=== PATIENT | male | born 1955 | race Caucasian/White ===

== ENCOUNTER 2017-07-12 14:09 | Emergency (ER) | payer BC ==
[2017-07-12 14:49] VITALS: BP 139/84
[2017-07-12] MEDS ORDERED: Ibuprofen TAB* 400 MG PO ONE (14:58)
--- NOTE | 2017-07-12 15:04 | UC ---
FLU HPI - HPI Summary HPI Summary: day 2 of fevers, chills, body aches, nasal and eye drainage, cough no flu vaccine this year - History of Current Complaint Chief Complaint: UCGeneralIllness Stated Complaint: EYES,FLU LIKE SYMP Time Seen by Provider: 07/12/17 14:52 Hx Obtained From: Patient Onset/Duration: Sudden Onset, Lasting Days - 2, Still Present, Worse Since - this day Severity Currently: Moderate Severity Initially: Moderate Associated Signs & Symptoms: Positive: Fever, Myalgia, Cough, Sore Throat, Headache - Allergy/Home Medications Allergies/Adverse Reactions: Allergies Allergy/AdvReac Type Severity Reaction Status Date / Time No Known Allergies Allergy Verified 07/12/17 14:48 Home Medications: Home Medications cold 1 tab PO ONCE 07/12/17 [History] PMH/Surg Hx/FS Hx/Imm Hx Previously Healthy: Yes - Surgical History Surgical History: Yes Surgery Procedure, Year, and Place: 1997 RIGHT INGUINAL HERNIA REPAIR, [place], [place]. 1989 RIGHT KNEE SURGERY, [place], [place]. 1997 RIGHT KNEE SURGERY, [facility] - Family History Known Family History: Positive: None - Social History Occupation: Employed Full-time Lives: With Family Alcohol Use: Occasionally Substance Use Type: None Smoking Status (MU): Never Smoked Tobacco Review of Systems Constitutional: Fever, Chills Skin: Negative Eyes: Drainage - clear drainage OD, Eye Redness - od ENT: Sore Throat, Nasal Discharge, Sinus Congestion Respiratory: Cough Cardiovascular: Negative Gastrointestinal: Negative Genitourinary: Negative Motor: Negative Neurovascular: Negative Musculoskeletal: Myalgia - back and neck pain Neurological: Negative Psychological: Negative Is Patient Immunocompromised?: No All Other Systems Reviewed And Are Negative: Yes Physical Exam Triage Information Reviewed: Yes Appearance: Well-Appearing, No Pain Distress, Well-Nourished Vital Signs: Initial Vital Signs Temp 101 F 07/12/17 14:44 Pulse 94 07/12/17 14:44 Resp 18 07/12/17 14:44 BP 139/84 07/12/17 14:44 Pulse Ox 98 07/12/17 14:44 Vital Signs Reviewed: Yes Eye Exam: Normal Eyes: Positive: Conjunctiva Clear, Conjunctiva Inflamed ENT Exam: Normal ENT: Positive: Normal ENT inspection, Hearing grossly normal, Pharynx normal, Nasal congestion, TMs normal. Negative: Tonsillar swelling, Tonsillar exudate, Trismus, Muffled voice, Hoarse voice, Dental tenderness, Sinus tenderness, Uvula midline Dental Exam: Normal Neck exam: Normal Neck: Positive: Supple, Nontender, No Lymphadenopathy Respiratory Exam: Normal Respiratory: Positive: Chest non-tender, Lungs clear, Normal breath sounds, No respiratory distress, No accessory muscle use Cardiovascular Exam: Normal Cardiovascular: Positive: RRR, No Murmur, Pulses Normal, Brisk Capillary Refill Musculoskeletal Exam: Normal Musculoskeletal: Positive: Strength Intact, ROM Intact, No Edema Neurological Exam: Normal Neurological: Positive: Alert, Muscle Tone Normal Psychological Exam: Normal Skin Exam: Normal Diagnostics - Laboratory Diagnostic Studies Completed/Ordered: Influenza A/B (-) Flu Course/Dx - Course Course Of Treatment: Polytrim for right eye, otc medication for uri symptoms, follow with pcp - Differential Dx/Diagnosis Provider Diagnoses: URI, Conjuctivitis OD Discharge - Discharge Plan Condition: Stable Disposition: HOME Prescriptions: Polymyx/Trimethoprim OPTH* [Polytrim OPHTH*] 1 drop RIGHT EYE Q3H #1 btl Patient Education Materials: Upper Respiratory Infection (ED), Viral Syndrome ( ED) Referrals: Aleksey Gardiner MD [Primary Care Provider] - If Needed
== END 2017-07-12 15:33 | disposition home or self-care (01) ==
LOC: UCCORT 14:09
DX: J06.9 Acute upper respiratory infection, unspecified (principal); H10.9 Unspecified conjunctivitis; Z72.89 Other problems related to lifestyle
CPT/HCPCS: 87502; 99202; A9270-GY; G0463

== ENCOUNTER → 2019-06-28 09:33 | Day surgery (SDC) | payer BC, OTHER ==
--- NOTE | 2019-06-08 10:17 | HP ---
CC: Dr. Gardiner * PREOPERATIVE HISTORY AND PHYSICAL: DATE OF PREOPERATIVE HISTORY AND PHYSICAL: 06/07/19 This patient is scheduled for same day surgery admission by Dr. Gallardo 06/28/19. ATTENDING SURGERY: Dr. Ghassan Gallardo * (dictated by Lelo Nettles NP) CHIEF COMPLAINT: Incisional umbilical hernia. HISTORY OF PRESENT ILLNESS: The patient is a 63-year-old male recently evaluated by Dr. Gallardo for an incisional umbilical hernia. The patient had a laparoscopic appendectomy in 2016 at [facility]. More recently , he has noticed a bulge in the umbilical region. He denies any pain, he denies any signs or symptoms to suggest incarceration or strangulation. He is physically active. Also, at the time of the laparoscopic appendectomy, the patient was told that he may have a recurrent right inguinal hernia or it may have represented scarring. Dr. Gallardo examined the patient and noted an incisional hernia at the prior trocar site near the umbilicus; no inguinal hernias were palpated. Dr. Gallardo reviewed the findings with the patient and has recommended robotic repair of the incisional umbilical hernia with mesh as a same-day surgery procedure under general anesthesia. Dr. Gallardo described the nature of the surgical procedure, the rationale for the procedure, the relevant risks, benefits, and alternatives and today I reviewed the expected postoperative care and recovery. The patient has had a chance to ask questions and stated that he understands the information and is satisfied with the answers given to his questions. He will sign surgical consent on the day of surgery. PAST MEDICAL HISTORY: Generally healthy, no acute or chronic conditions. PAST SURGICAL HISTORY: Right inguinal hernia repair around 1997; laparoscopic appendectomy September 2016 at [facility]; right knee surgery for ACL repair; open reduction and internal fixation of left fourth finger 2012. MEDICATIONS: None currently. ALLERGIES: No known drug allergies. FAMILY HISTORY: Father due to natural causes. Mother due to lung cancer. 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 REVIEW OF SYSTEMS: Constitutional: No fever, chills, excessive fatigue or weight loss. General: No previous anesthesia complications or bleeding tendencies; he has never received a blood transfusion; he denies any history of deep vein thrombosis or pulmonary embolism. Endocrine: No diabetes or thyroid disease. Respiratory: No dyspnea on exertion or chronic cough. Cardiovascular : No anginal chest pain or palpitations. Gastrointestinal: No nausea, vomiting, diarrhea, GI bleeding, or constipation, or change in bowel habits. Genitourinary: No dysuria; he has seen Dr. Walls in the past for hematuria, none current. Musculoskeletal: Normal strength and tone. Integumentary: No chronic rashes or skin changes. Neurologic: No headache or blurred vision or areas of focal weakness. Psychiatric: No reported anxiety, depression, or insomnia. PHYSICAL EXAMINATION GENERAL SURVEY: The patient is a 63-year-old male, well developed, well nourished, in no acute distress. VITAL SIGNS: Height 72 inches, weight 160 pounds, body mass index 21.7, blood pressure 112/72, pulse 78 and regular, respiratory rate 18, and temperature 97.5 tympanic. SKIN: Warm, dry, and intact. HEENT: Benign. NECK: Supple. No cervical lymphadenopathy. No thyromegaly. BACK: No CVA tenderness. LUNGS: Breath sounds bilaterally clear and equal. HEART: Regular rate and rhythm. No murmurs or rubs appreciated. ABDOMEN: Active bowel sounds, soft, nondistended, nontender throughout. Palpation reveals an incisional hernia at the prior trocar site near the umbilicus. GENITALIA: Examined by Dr. Gallardo, normal external genitalia. No obvious inguinal hernia on either side on palpation. EXTREMITIES: Warm without edema or skin ulceration. RECTAL: Deferred. NEUROLOGIC: Alert and oriented x3; cooperative; steady gait. IMPRESSION: Incisional umbilical hernia. PLAN/RECOMMENDATIONS: Same-day surgery admission to Dr. Gallardo's service on Friday06/28/19 for robotic incisional umbilical hernia repair with mesh. CHRISTOPHER NETTLES NP [id number]/[facility] #: [id number] COLE
[~2019-06-28 09:33] MED LIST: Buffered Lidocaine 1% SYRIN* 1 ML/SYRINGE INTRADERM ONE; Bupivacaine 0.5%* 50 ML MDV VIAL ONE; Dexamethasone IV* 4 MG/ML 1 ML (4 MG) ONE; Famotidine IV* 10 MG/ML 2 ML (20 mg) IV ONE; Famotidine IV* 10 MG/ML 2 ML (20 mg) ONE; Ketorolac INJ* 30 MG/ML 1 ML VIAL ONE; Lidocaine 2% PF * 5 ML VIAL ONE; Metoclopramide IV* 5 MG/ML 2 ML VIAL IV ONE; Metoclopramide IV* 5 MG/ML 2 ML VIAL ONE; Midazolam* 1 MG/ML 5 ML VIAL (5 MG) ONE; Naloxone* 0.4 MG/ML 1 ML VIAL IV PRN; Ondansetron INJ* 2 MG/ML VIAL IV PRN; Ondansetron INJ* 2 MG/ML VIAL ONE; Propofol* 10 MG/ML 20 ML BTL ONE; Rocuronium* 10 MG/ML VIAL ONE; Scopolamine 1.5 mg* PATCH ONE; Scopolamine 1.5 mg* PATCH TRANSDERM ONE; Scopolamine PATCH Remove* 1 NOTE MISC PATCH OFF ONE; Sugammadex * 200 MG/2 ML VIAL IV PUSH ONE; ceFAZolin 2 GM PREMIX in ORs 2 GM/50 ML BAG ONE; fentaNYL* 50 MCG/ML 2 ML VIAL (100 MCG VIAL) IV PRN; fentaNYL* 50 MCG/ML 2 ML VIAL (100 MCG VIAL) ONE; oxyCODONE/Acetamin 5/325 MG* TAB PO PRN
[2019-06-28] MEDS: Lactated Ringers 1000 ML Bag* 1,000 ML IV SCH ×2 (10:14→16:30)
[2019-06-28 18:12] VITALS: BP 110/78
--- NOTE | 2019-06-28 20:53 | OP ---
DATE OF OPERATION: 06/28/19 - [facility] DATE OF : 59 SURGEON: Ghassan Gallardo MD BAG END SEWER: RAYMOND Garcia PRE-OP DIAGNOSIS: Incisional hernia at the umbilicus. POST-OP DIAGNOSIS: Incisional hernia at the umbilicus. OPERATIVE PROCEDURE: Robotic repair of incisional hernia with mesh. INDICATIONS FOR PROCEDURE: Incisional hernia. Risks included, but not limited to bleeding, infection, injury to the intraabdominal contents including the bowel, recurrence of the hernia were explained to the patient, who seemed to understand and agreed to the procedure and all questions were answered. DESCRIPTION OF PROCEDURE: The patient was taken to the operating room and placed supine. Preoperative antibiotics were given. After the successful induction of general endotracheal anesthesia, the abdomen was prepped and draped in sterile fashion. A time-out was performed indicating correct patient and correct procedure. Trocars were placed in the left upper quadrant, left lateral and left lower quadrant respectively. Under direct visualization of the camera, the robot was brought in and docked. The peritoneum was taken down in the hernia sac along with a lipoma was removed from the incisional defect. The defect was then closed with a running 0 PDS Stratafix suture. The mesh, small Ventralex patch was then brought up to the repair site, was sutured to the anterior abdominal wall using the 0 V-Loc suture. The peritoneum was then closed with a running 3-0 V-Loc suture. EBL minimal. Hemostasis was intact. [place] were removed from the abdomen. The abdomen was scanned. No obvious injuries were noted. Pneumoperitoneum was released from the abdomen and the trocars were removed. The skin was closed with Monocryl and glue. The patient tolerated the procedure well, was extubated and taken to Recovery in stable condition. [id number]/[facility] #: [id number] MTDD
== END | disposition home or self-care (01) ==
LOC: OR 09:33
PROVIDERS: ATTEND Surgery
DX: K43.2 Incisional hernia without obstruction or gangrene (principal); Z90.89 Acquired absence of other organs; M17.11 Unilateral primary osteoarthritis, right knee; M25.511 Pain in right shoulder
CPT/HCPCS: A9270-GY; C1781; J0690; J1100; J1885; J2250; J2405; J2704; J2765; J3010; J3490

== ENCOUNTER 2019-09-08 13:42 | Emergency (ER) | payer BC ==
[2019-09-08 14:13] VITALS: BP 152/74
--- NOTE | 2019-09-08 14:35 | UC ---
Skin Complaint HPI - HPI Summary HPI Summary: 63-year-old male who removed a tick from his right lower leg which has been embedded greater than 48 hours. - History of Current Complaint Chief Complaint: UCBiteInjury Time Seen by Provider: 09/08/19 14:00 Stated Complaint: TICK BITE Hx Obtained From: Patient Onset/Duration: Sudden Onset, Lasting Days Skin Exposure Onset/Duration: Days Ago Timing: Constant Onset Severity: Mild Current Severity: Mild Pain Intensity: 0 Location: Other - Right lower leg. Character: Redness Aggravating Factor(s): Nothing Alleviating Factor(s): Nothing Associated Signs & Symptoms: Positive: Negative - Allergy/Home Medications Allergies/Adverse Reactions: Allergies Allergy/AdvReac Type Severity Reaction Status Date / Time latex Allergy Rash Verified 09/08/19 14:09 Home Medications: Home Medications DOXYcycline CAP(*) [DOXYcycline 100MG CAP(*)] 200 mg PO ONCE 1 Days #2 cap 09/07 [Rx] Vitamin THERAPEUTIC TAB* [Theragran TAB*] 1 tab PO DAILY 09/08/19 [History Confirmed 09/08/19] PMH/Surg Hx/FS Hx/Imm Hx Previously Healthy: Yes - Surgical History Surgical History: Yes Surgery Procedure, Year, and Place: 1997 RIGHT INGUINAL HERNIA REPAIR, [facility] [place]. 1989 RIGHT KNEE SURGERY, [place], [place]. 1997 RIGHT KNEE SURGERY, [facility]. 2017 APPYDECTOMY [place] - Family History Known Family History: Positive: None - Social History Lives: With Family Alcohol Use: Weekly Alcohol Amount: 3 BEERS A WEEK Substance Use Type: None Smoking Status (MU): Never Smoked Tobacco Have You Smoked in the Last Year: No Review of Systems All Other Systems Reviewed And Are Negative: Yes Skin: Positive: Other - Tick bite right lower leg surrounded by approximately 0.5 cm of erythema. Is Patient Immunocompromised?: No Physical Exam Triage Information Reviewed: Yes Appearance: Well-Appearing, No Pain Distress, Well-Nourished Vital Signs: Initial Vital Signs Temp 98.8 F 09/08/19 14:08 Pulse 72 09/08/19 14:08 Resp 16 09/08/19 14:08 BP 152/74 09/08/19 14:08 Pulse Ox 100 09/08/19 14:08 Vital Signs Reviewed: Yes Musculoskeletal Exam: Normal Neurological Exam: Normal Psychological Exam: Normal Skin: Positive: Other - Tick bite right lower leg surrounded by 0.5 cm of erythema. The tick itself has been completely removed. Course/Dx - Course Course Of Treatment: The patient opted to be treated with his preventative doxycycline. He was given information on Lyme disease. - Diagnoses Provider Diagnosis: Tick bite of right lower leg Discharge ED - Sign-Out/Discharge Documenting (check all that apply): Patient Departure All imaging exams completed and their final reports reviewed: No Studies - Discharge Plan Condition: Good Disposition: HOME Prescriptions: DOXYcycline CAP(*) [DOXYcycline 100MG CAP(*)] 200 mg PO ONCE 1 Days #2 cap Patient Education Materials: Tick Bite (ED) Referrals: Aleksey Gardiner MD [Primary Care Provider] - Additional Instructions: No dairy products, antacids or multivitamins 2 hours before you take the doxycycline and 2 hours after however take it with food, because it may cause an upset stomach. Definite follow-up with your primary care provider if you develop any fever, chills, body rashes over the next few weeks. - Billing Disposition and Condition Condition: GOOD Disposition: Home
== END 2019-09-08 14:43 | disposition home or self-care (01) ==
LOC: UCCORT 13:42
DX: S80.861A Insect bite (nonvenomous), right lower leg, initial encounter (principal); W57.XXXA Bitten or stung by nonvenomous insect and other nonvenomous arthropods, initial encounter; Y92.9 Unspecified place or not applicable; Z91.040 Latex allergy status
CPT/HCPCS: 99212; G0463